=== PATIENT | female | born 1995 | race American Indian/Alaskan Native ===

== ENCOUNTER 2018-01-02 17:17 | Emergency (ER) | payer BC ==
--- NOTE | 2018-01-02 21:41 | Emergency Department Report ---
ED General Adult HPI - General Chief complaint: Chest Pain Stated complaint: C/P Time Seen by Provider: 01/02/18 21:19 Source: patient Mode of arrival: Ambulatory Limitations: No Limitations - History of Present Illness Initial comments: This is a 22-year-old female who was previously unknown to this provider. She reports that she is not , and denies chronic medical conditions with the exception of asthma. She currently does not have a primary care doctor. She does not take control tablets and she denies DVT and pulmonary embolus risk factors. The patient presents to the ER with a complaint of chest pain, possibly passing out versus having a seizure. She is not certain. She reports that 12:15 PM today, she was at work, in her usual state of health, she developed central chest pressure which did not radiates to the back, arms or neck. There is no vomiting, diaphoresis, and there is no shortness of breath. She reports that she thinks that she may have had a convulsion, or she may have had a seizure, which she may pass out. She is not sure. Prior to this event, she denies headache and neck pain. She has no complaints at this time, and would like to go home. -: Sudden Location: chest Radiation: non-radiation Consistency: now resolved Improves with: none Worsens with: none Associated Symptoms: chest pain, seizure, syncope. denies: confusion, cough, diaphoresis, fever/chills, headaches, loss of appetite, malaise, nausea/vomiting , shortness of breath, weakness - Related Data Allergies Allergy/AdvReac Type Severity Reaction Status Date / Time No Known Allergies Allergy Unverified 01/02/18 17:38 ED Review of Systems ROS: Stated complaint: C/P Other details as noted in HPI Comment: All other systems reviewed and negative ED Past Medical Hx - Past Medical History Hx Asthma: Yes Additional medical history: hypoglycemia,racing heart - Surgical History Additional Surgical History: left ACL tear - Social History Smoking Status: Never Smoker Substance Use Type: None ED Physical Exam - General Limitations: No Limitations General appearance: alert, in no apparent distress - Head Head exam: Present: atraumatic, normocephalic - Eye Eye exam: Present: normal appearance, PERRL, EOMI, other (Extraocular movements intact. Tongue midline. No facial droop. Facial sensation intact to light touch in the V1, V2, V3 distribution bilaterally. 5 and 5 strength in 4 extremities.. Sensation is intact to light touch in 4 extremities.). Absent: nystagmus - ENT ENT exam: Present: normal exam, normal orophraynx, mucous membranes moist, normal external ear exam - Neck Neck exam: Present: normal inspection, full ROM - Respiratory Respiratory exam: Present: normal lung sounds bilaterally. Absent: respiratory distress - Cardiovascular Cardiovascular Exam: Present: regular rate, normal rhythm, normal heart sounds. Absent: bradycardia, tachycardia, irregular rhythm, systolic murmur, diastolic murmur, rubs, gallop - GI/Abdominal GI/Abdominal exam: Present: soft, normal bowel sounds. Absent: distended, guarding, rebound, rigid - Extremities Exam Extremities exam: Present: normal inspection, full ROM, normal capillary refill. Absent: pedal edema, joint swelling, calf tenderness - Back Exam Back exam: Present: normal inspection, full ROM. Absent: tenderness, CVA tenderness (R), paraspinal tenderness, vertebral tenderness - Neurological Exam Neurological exam: Present: alert, oriented X3, CN II-XII intact, normal gait, other (Extraocular movements intact. Tongue midline. No facial droop. Facial sensation intact to light touch in the V1, V2, V3 distribution bilaterally. 5 and 5 strength in 4 extremities.. Sensation is intact to light touch in 4 extremities.). Absent: motor sensory deficit - Psychiatric Psychiatric exam: Present: normal affect, normal mood. Absent: anxious, flat affect - Skin Skin exam: Present: warm, dry, intact, normal color. Absent: rash ED Course Vital Signs 01/02/18 01/02/18 17:34 21:20 Temperature 98.4 F 98.4 F Pulse Rate 67 78 Respiratory 18 16 Rate Blood Pressure 114/75 Blood Pressure 102/67 [Left] O2 Sat by Pulse 100 100 Oximetry - Reevaluation(s) Reevaluation #1: 01/02/18 23:06 Differential diagnosis, including but not limited to: Structural intracranial disease, seizure, drug abuse, acute coronary syndrome, arrhythmia, structural cardiac disease, electrolyte derangement, pulmonary embolus Assessment and plan: 22-year-old female with no pulmonary embolus or DVT risk factors, low risk by well's criteria, negative d-dimer, perc negative, presents with chest pain, seizure versus syncope reportedly. Presented more than 8 hours after symptom onset, chest pain very atypical, low risk by DAVID score, low risk by heart score, troponin negative 1, as per the [employer] clinical policy, myocardial infarction May be ruled out with one set of cardiac enzymes if symptoms have been present for greater than 8 hours. 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 The patient has had no episodes of convulsions or syncope in the ER 4 hours, she is clinically sober at this time, has a GCS of 15, NIH score of 0, and is clinically sober. There is no sudden or thunderclap headache, there is no neck pain or neck stiffness, a noncontrast CT scan of the brain is negative. The patient's laboratory studies were unremarkable, a chest x-ray was unremarkable, and her vital signs remain stable. The patient is suitable to follow up with outpatient cardiology for her syncope and possible chest pain, and outpatient neurology for her possible convulsion versus seizure. She is instructed to not drive a car or operate motor vehicles and to follow-up with the aforementioned outpatient subspecialty providers. The patient was pain-free during my entire evaluation, and declined pain medication. 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 Reevaluation #3: 01/02/18 23:10 Serum glucose is 68, patient awake, alert, conversant and does not have indication of symptomatic hypoglycemia at this time. Nevertheless, the patient will be fed. Reevaluation #4: 01/02/18 23:30 Vital signs stable. No further convulsive movements. The patient will be discharged. ED Medical Decision Making - Lab Data Result diagrams: 01/02/18 21:45 01/02/18 21:45 Vital Signs 01/02/18 01/02/18 17:34 21:20 Temperature 98.4 F 98.4 F Pulse Rate 67 78 Respiratory 18 16 Rate Blood Pressure 114/75 Blood Pressure 102/67 [Left] O2 Sat by Pulse 100 100 Oximetry Lab Results 01/02/18 01/02/18 01/02/18 Range/Units 21:45 21:45 21:45 WBC 5.3 (4.5-11.0) K/mm3 RBC 4.03 (3.65-5.03) M/mm3 Hgb 11.3 (10.1-14.3) gm/dl Hct 34.2 (30.3-42.9) % MCV 85 (79-97) fl MCH 28 (28-32) pg MCHC 33 (30-34) % RDW 15.5 H (13.2-15.2) % Plt Count 267 (140-440) K/mm3 Edwards % (Auto) [employer] Add Manual Diff Complete Total Counted 100 Seg Neuts % (Manual) 42.0 (40.0-70.0) % Band Neutrophils % 0 % Lymphocytes % (Manual) 41.0 H (13.4-35.0) % Reactive Lymphs % (Man) 0 % Monocytes % (Manual) 15.0 H (0.0-7.3) % Eosinophils % (Manual) 2.0 (0.0-4.3) % Basophils % (Manual) 0 (0.0-1.8) % Metamyelocytes % 0 % Myelocytes % 0 % Promyelocytes % 0 % Blast Cells % 0 % Nucleated RBC % Not Reportable Seg Neutrophils # Man 2.2 (1.8-7.7) K/mm3 Band Neutrophils # 0.0 K/mm3 Lymphocytes # (Manual) 2.2 (1.2-5.4) K/mm3 Abs React Lymphs (Man) 0.0 K/mm3 Monocytes # (Manual) 0.8 (0.0-0.8) K/mm3 Eosinophils # (Manual) 0.1 (0.0-0.4) K/mm3 Basophils # (Manual) 0.0 (0.0-0.1) K/mm3 Metamyelocytes # 0.0 K/mm3 Myelocytes # 0.0 K/mm3 Promyelocytes # 0.0 K/mm3 Blast Cells # 0.0 K/mm3 WBC Morphology Not Reportable Hypersegmented Neuts Not Reportable Hyposegmented Neuts Not Reportable Hypogranular Neuts Not Reportable Smudge Cells Not Reportable Toxic Granulation Not Reportable Toxic Vacuolation Not Reportable Dohle Bodies Not Reportable Pelger-Huet Anomaly Not Reportable Jessie Rods Not Reportable Platelet Estimate Consistent w auto Clumped Platelets Not Reportable Plt Clumps, EDTA Not Reportable Large Platelets Not Reportable Giant Platelets Not Reportable Platelet Satelliting Not Reportable Plt Morphology Comment Not Reportable RBC Morphology Not Reportable Dimorphic RBCs Not Reportable Polychromasia Not Reportable Hypochromasia Not Reportable Poikilocytosis Few Anisocytosis Few Microcytosis Not Reportable Macrocytosis Not Reportable Spherocytes Not Reportable Pappenheimer Bodies Not Reportable Sickle Cells Not Reportable Target Cells Not Reportable Tear Drop Cells Not Reportable Ovalocytes Few Helmet Cells Not Reportable Stovall-Garwin Bodies Not Reportable [place] Rings Not Reportable Charlette Cells Not Reportable Bite Cells Not Reportable Crenated Cell Not Reportable Elliptocytes Not Reportable Acanthocytes (Spur) Not Reportable Rouleaux Not Reportable Hemoglobin C Crystals Not Reportable Schistocytes Not Reportable Malaria parasites Not Reportable Zoltan Bodies Not Reportable Hem Pathologist Commnt No PT 12.6 (12.2-14.9) Sec. INR 0.90 (0.87-1.13) APTT 28.7 (24.2-36.6) Sec. Thrombin Time 17.5 (15.1-19.6) Sec. D-Dimer 139.24 (0-234) ng/mlDDU Sodium (137-145) mmol/L Potassium (3.6-5.0) mmol/L Chloride (98-107) mmol/L Carbon Dioxide (22-30) mmol/L Anion Gap mmol/L BUN (7-17) mg/dL Creatinine (0.7-1.2) mg/dL Estimated GFR ml/min BUN/Creatinine Ratio % Glucose (65-100) mg/dL POC Glucose (70-105) Calcium (8.4-10.2) mg/dL Magnesium (1.7-2.3) mg/dL Troponin T < 0.010 (0.00-0.029) ng/mL TSH (0.270-4.200) mlU/mL HCG, Quant (0-4) mIU/mL 01/02/18 01/02/18 01/02/18 Range/Units 21:45 21:45 21:45 WBC (4.5-11.0) K/mm3 RBC (3.65-5.03) M/mm3 Hgb (10.1-14.3) gm/dl Hct (30.3-42.9) % MCV (79-97) fl MCH (28-32) pg MCHC (30-34) % RDW (13.2-15.2) % Plt Count (140-440) K/mm3 Edwards % (Auto) Add Manual Diff Total Counted Seg Neuts % (Manual) (40.0-70.0) % Band Neutrophils % % Lymphocytes % (Manual) (13.4-35.0) % Reactive Lymphs % (Man) % Monocytes % (Manual) (0.0-7.3) % Eosinophils % (Manual) (0.0-4.3) % Basophils % (Manual) (0.0-1.8) % Metamyelocytes % % Myelocytes % % Promyelocytes % % Blast Cells % % Nucleated RBC % Seg Neutrophils # Man (1.8-7.7) K/mm3 Band Neutrophils # K/mm3 Lymphocytes # (Manual) (1.2-5.4) K/mm3 Abs React Lymphs (Man) K/mm3 Monocytes # (Manual) (0.0-0.8) K/mm3 Eosinophils # (Manual) (0.0-0.4) K/mm3 Basophils # (Manual) (0.0-0.1) K/mm3 Metamyelocytes # K/mm3 Myelocytes # K/mm3 Promyelocytes # K/mm3 Blast Cells # K/mm3 WBC Morphology Hypersegmented Neuts Hyposegmented Neuts Hypogranular Neuts Smudge Cells Toxic Granulation Toxic Vacuolation Dohle Bodies Pelger-Huet Anomaly Jessie Rods Platelet Estimate Clumped Platelets Plt Clumps, EDTA Large Platelets Giant Platelets Platelet Satelliting Plt Morphology Comment RBC Morphology Dimorphic RBCs Polychromasia Hypochromasia Poikilocytosis Anisocytosis Microcytosis Macrocytosis Spherocytes Pappenheimer Bodies Sickle Cells Target Cells Tear Drop Cells Ovalocytes Helmet Cells Stovall-Garwin Bodies [place] Rings Charlette Cells Bite Cells Crenated Cell Elliptocytes Acanthocytes (Spur) Rouleaux Hemoglobin C Crystals Schistocytes Malaria parasites Zoltan Bodies Hem Pathologist Commnt PT (12.2-14.9) Sec. INR (0.87-1.13) APTT (24.2-36.6) Sec. Thrombin Time (15.1-19.6) Sec. D-Dimer (0-234) ng/mlDDU Sodium 137 (137-145) mmol/L Potassium 3.5 L (3.6-5.0) mmol/L Chloride 102.8 (98-107) mmol/L Carbon Dioxide 24 (22-30) mmol/L Anion Gap 14 mmol/L BUN 10 (7-17) mg/dL Creatinine 0.7 (0.7-1.2) mg/dL Estimated GFR > 60 ml/min BUN/Creatinine Ratio 14 % Glucose 85 (65-100) mg/dL POC Glucose (70-105) Calcium 8.5 (8.4-10.2) mg/dL Magnesium 1.90 (1.7-2.3) mg/dL Troponin T (0.00-0.029) ng/mL TSH (0.270-4.200) mlU/mL HCG, Quant < 2 (0-4) mIU/mL 01/02/18 01/02/18 Range/Units 21:45 23:01 WBC (4.5-11.0) K/mm3 RBC (3.65-5.03) M/mm3 Hgb (10.1-14.3) gm/dl Hct (30.3-42.9) % MCV (79-97) fl MCH (28-32) pg MCHC (30-34) % RDW (13.2-15.2) % Plt Count (140-440) K/mm3 Edwards % (Auto) Add Manual Diff Total Counted Seg Neuts % (Manual) (40.0-70.0) % Band Neutrophils % % Lymphocytes % (Manual) (13.4-35.0) % Reactive Lymphs % (Man) % Monocytes % (Manual) (0.0-7.3) % Eosinophils % (Manual) (0.0-4.3) % Basophils % (Manual) (0.0-1.8) % Metamyelocytes % % Myelocytes % % Promyelocytes % % Blast Cells % % Nucleated RBC % Seg Neutrophils # Man (1.8-7.7) K/mm3 Band Neutrophils # K/mm3 Lymphocytes # (Manual) (1.2-5.4) K/mm3 Abs React Lymphs (Man) K/mm3 Monocytes # (Manual) (0.0-0.8) K/mm3 Eosinophils # (Manual) (0.0-0.4) K/mm3 Basophils # (Manual) (0.0-0.1) K/mm3 Metamyelocytes # K/mm3 Myelocytes # K/mm3 Promyelocytes # K/mm3 Blast Cells # K/mm3 WBC Morphology Hypersegmented Neuts Hyposegmented Neuts Hypogranular Neuts Smudge Cells Toxic Granulation Toxic Vacuolation Dohle Bodies Pelger-Huet Anomaly Jessie Rods Platelet Estimate Clumped Platelets Plt Clumps, EDTA Large Platelets Giant Platelets Platelet Satelliting Plt Morphology Comment RBC Morphology Dimorphic RBCs Polychromasia Hypochromasia Poikilocytosis Anisocytosis Microcytosis Macrocytosis Spherocytes Pappenheimer Bodies Sickle Cells Target Cells Tear Drop Cells Ovalocytes Helmet Cells Stovall-Garwin Bodies [place] Rings Charlette Cells Bite Cells Crenated Cell Elliptocytes Acanthocytes (Spur) Rouleaux Hemoglobin C Crystals Schistocytes Malaria parasites Zoltan Bodies Hem Pathologist Commnt PT (12.2-14.9) Sec. INR (0.87-1.13) APTT (24.2-36.6) Sec. Thrombin Time (15.1-19.6) Sec. D-Dimer (0-234) ng/mlDDU Sodium (137-145) mmol/L Potassium (3.6-5.0) mmol/L Chloride (98-107) mmol/L Carbon Dioxide (22-30) mmol/L Anion Gap mmol/L BUN (7-17) mg/dL Creatinine (0.7-1.2) mg/dL Estimated GFR ml/min BUN/Creatinine Ratio % Glucose (65-100) mg/dL POC Glucose 68 L (70-105) Calcium (8.4-10.2) mg/dL Magnesium (1.7-2.3) mg/dL Troponin T (0.00-0.029) ng/mL TSH 2.660 (0.270-4.200) mlU/mL HCG, Quant (0-4) mIU/mL - EKG Data -: EKG Interpreted by Me EKG shows normal: sinus rhythm Rate: normal - EKG Data When compared to previous EKG there are: previous EKG unavailable 01/02/18 23:10 Sinus, 62 bpm, normal intervals, normal axis, not consistent with STEMI - Radiology Data Radiology results: report reviewed, image reviewed interpreted by me: X-ray of the chest, interpreted by me: No acute disease X-ray of the chest is negative. Noncontrast CT scan of the brain is negative. Critical care attestation.: If time is entered above; I have spent that time in minutes in the direct care of this critically ill patient, excluding procedure time. ED Disposition Clinical Impression: History of chest pain, History of convulsions Disposition: TO HOME OR SELFCARE Is pt being admited?: No Does the pt Need Aspirin: No Condition: Good Instructions: Chest Pain (ED), Syncope (ED), Non-diabetic Hypoglycemia (ED) Additional Instructions: Follow-up with the primary care doctor within the next week. Follow up with any of the listed cardiology groups within the next 2 weeks for your chest pain and passing out. Follow-up with any of the listed neurology specialists for possible seizure/ convulsion within the next 2 weeks. Make certain to eat 3 meals a day, and do not drive a car for the next 6 months. Return to the ER right away with new pain, worsened pain, migration of pain, fevers, chills, lethargy, irritability, projectile vomiting, change in mental status, confusion, inability to tolerate liquid feeds. Referrals: SANDRINE CUELLAR MD [Primary Care Provider] - 3-5 Days DASHAWN GUZMAN MD [Referring] - 3-5 Days BARBARA MCCULLOUGH MD [Staff Physician] - 3-5 Days [facility] [Provider Group] - 3-5 Days [facility] [Provider Group] - 3-5 Days
[2018-01-02 22:12] LABS: Hematocrit 34.2 % (30.3-42.9); Hemoglobin 11.3 gm/dl (10.1-14.3); Mean Corpuscular HGB Conc 33 % (30-34); Mean Corpuscular Hemoglobin 28 pg (28-32); Mean Corpuscular Volume 85 fl (79-97); Platelet Count 267 K/mm3 (140-440); Red Blood Count 4.03 M/mm3 (3.65-5.03); Red Cell Distribution Width 15.5 % (13.2-15.2)
[2018-01-02 22:23] LABS: INR 0.9 (0.87-1.13)
[2018-01-02 22:24] LABS: Partial Thromboplastin Time 28.7 Sec. (24.2-36.6); Thrombin Time 17.5 Sec. (15.1-19.6)
[2018-01-02 22:35] LABS: BUN/Creatinine Ratio 14; Blood Urea Nitrogen 10 mg/dL (7-17); Calcium 8.5 mg/dL (8.4-10.2)
[2018-01-02 22:36] LABS: Hemolysis Index 3
[2018-01-02 22:49] LABS: Basophils % (Manual) 0 % (0.0-1.8); Total Cells Counted 100
[2018-01-02 22:50] LABS: Anisocytosis Few; Platelet Estimate Consistent w Auto; Poikilocytosis Few
--- NOTE | 2018-01-02 22:50 | Cat Scan Report ---
FINAL REPORT PROCEDURE: CT HEAD/BRAIN WO CON TECHNIQUE: Computerized tomography of the head was performed without contrast material. HISTORY: Seizure versus syncope COMPARISON: No prior studies are available for comparison. FINDINGS: No CT evidence of intracranial mass, hemorrhage, acute territorial infarction, or hydrocephalus. The intracranial arteries are symmetric in density. Calvarium is intact. Visualized paranasal sinuses and mastoids are aerated. IMPRESSION: No CT evidence of acute abnormality
[2018-01-02 22:51] LABS: Ovalocytes Few
[2018-01-02 23:09] LABS: HCG Qualitative,Urine Negative (Negative)
[2018-01-02 23:10] LABS: Bilirubin,Urine NEG (Negative); Blood,Urine NEG (Negative); Color,Urine Yellow (Yellow); Mucus,Urine FEW /HPF; Protein,Urine <15 mg/dL mg/dL (Negative); Urobilinogen,Urine < 2.0 mg/dL (<2.0)
[2018-01-02 23:17] LABS: Amphetamine Screen,Urine PRESUMPTIVE NEGATIVE; Benzodiazepines Screen,Urine PRESUMPTIVE NEGATIVE; Cannabinoid Screen,Urine PRESUMPTIVE NEGATIVE; Cocaine Screen,Urine PRESUMPTIVE NEGATIVE; Methadone Screen,Urine PRESUMPTIVE NEGATIVE; Opiate Screen,Urine PRESUMPTIVE NEGATIVE
[2018-01-02 23:18] LABS: WBC,Urine < 1.0 /HPF (0.0-6.0)
--- NOTE | 2018-01-02 23:36 | XRay Report ---
FINAL REPORT PROCEDURE: XRAY CHEST 2 VIEWS TECHNIQUE: PA and lateral chest radiographs were obtained. CPT 10783 HISTORY: Shortness of breath. COMPARISON: No prior studies are available for comparison. FINDINGS: Heart: Normal. Mediastinum/Vessels: Normal. Lungs/Pleural space: Normal. Bony thorax: No acute osseous abnormality. Other: IMPRESSION: No radiographic evidence of acute cardiopulmonary disease.
[2018-01-03 00:25] VITALS: BP 107/55
== END 2018-01-03 00:23 | disposition home or self-care (01) ==
LOC: ED 17:17
DX: R07.89 Other chest pain (principal); R56.9 Unspecified convulsions; R55 Syncope and collapse; J45.909 Unspecified asthma, uncomplicated
CPT/HCPCS: 36415; 70450; 71046; 80048; 80307; 81001; 81025; 82962; 83735; 84443; 84484; 84702; 85007; 85025; 85379; 85610; 85670; 85730; 93005; 93010